=== PATIENT | male | born 1955 | race Caucasian/White ===

== ENCOUNTER 2016-07-25 15:36 | Inpatient (IN) | payer BC, MEDICARE ==
[~2016-07-25] VITALS: Ht 175.3 cm; Wt 75.7 kg
[2016-07-25] MEDS ORDERED: ACETAMINOPHEN 325 MG TABLET PO PRN ×2 (17:15)
[2016-07-25] MEDS ORDERED: TEMAZEPAM 15 MG CAPSULE PO PRN (17:15)
[2016-07-25] MEDS ORDERED: DOCUSATE SODIUM 283 MG/5 ML MINI-ENEMA PR PRN (17:15)
[2016-07-25 17:28] VITALS: BP 153/81
[2016-07-25] MEDS ORDERED: PNEUMOCOCCAL VACCINE POLYVALENT 0.5 ML VIAL [PPSV23] IM ONE (18:45)
[2016-07-25] MEDS ORDERED: INFLUENZA VIRUS VACCINE QVS 2016-17 (3YR+)/PF 60 MCG/0.5 ML SYRINGE IM ONE (18:45)
[2016-07-25] MEDS: DOCUSATE SODIUM 100 MG CAPSULE PO SCH (20:04)
[2016-07-25] MEDS: SENNA 187 MG TABLET PO SCH (20:05)
[2016-07-25 20:41] LABS: APPEARANCE,URINE CLEAR (CLEAR); GLUCOSE, URINE (UA) NEGATIVE (NEGATIVE); KETONES,URINE NEGATIVE (NEGATIVE); LEUKOCYTE ESTERASE ,URINE NEGATIVE (NEGATIVE); OCCULT BLOOD,URINE NEGATIVE (NEGATIVE); PROTEIN,URINE NEGATIVE (NEGATIVE); RBC,URINE None Seen /HPF (0-2); WBC,URINE 0-2 /HPF (0-5)
[2016-07-26 06:46] LABS: BASOPHILS % (AUTO) 0.1 % (0.0-2.0); EOSINOPHILS % (AUTO) 1.3 % (1.0-6.0); HEMATOCRIT 39.8 % (41-53); LYMPHOCYTES # (AUTO) 1.1 K/uL (1.0-4.8); LYMPHOCYTES % (AUTO) 12.9 % (22.0-44.0); MEAN CORPUSCULAR HEMOGLOBIN 29.6 pg (26.0-34.0); MEAN CORPUSCULAR HGB CONC 32.7 G/dL (31.0-37.0); MEAN CORPUSCULAR VOLUME 91 fL (80-100); MONOCYTES # (AUTO) 0.7 K/uL (0.1-1.0); MONOCYTES % (AUTO) 8.8 % (2.0-9.0); NEUTROPHILS # (AUTO) 6.3 K/uL (1.8-7.7); NEUTROPHILS % (AUTO) 76.9 % (40.0-70.0); PLATELET COUNT (AUTO) 280 K/uL (150-450); RED BLOOD CELL COUNT(AUTO) 4.39 MIL/uL (4.50-5.90); RED CELL DISTRIBUTION WIDTH 13.6 % (11.5-14.5); WHITE BLOOD COUNT (AUTO) 8.3 K/uL (4.5-11.0)
[2016-07-26 07:11] LABS: ALANINE AMINOTRANSFERASE 20 U/L (12-78); ALBUMIN 3.2 g/dL (3.4-5.0); ANION GAP 10 mmol/L (8-16); ASPARTATE AMINOTRANSFERASE 15 U/L (15-37); BILIRUBIN,TOTAL 0.4 mg/dL (0.1-1.0); CALCIUM, TOTAL 8.6 mg/dL (8.8-10.5); CARBON DIOXIDE 24 mmol/L (22-29); CHLORIDE 105 mmol/L (98-107); CREATININE 0.74 mg/dL (0.60-1.30); GLOMERULAR FILTR. RATE CALC > 60 mL/min (>60); POTASSIUM 3.8 mmol/L (3.5-5.1); SODIUM SERUM 139 mmol/L (136-145); TOTAL PROTEIN, SERUM 6.7 g/dL (6.4-8.2); UREA NITROGEN, BLOOD 9 mg/dL (7-18)
[2016-07-26 08:07] VITALS: BP 124/78
[2016-07-26] MEDS: DOCUSATE SODIUM 100 MG CAPSULE PO SCH ×2 (08:39→21:00)
[2016-07-26] MEDS: LISINOPRIL 5 MG TABLET PO SCH (08:39)
[2016-07-26] MEDS: THIAMINE HCL 100 MG TABLET PO SCH (08:39)
[2016-07-26] MEDS: FOLIC ACID 1 MG TABLET PO SCH (08:39)
[2016-07-26] MEDS ORDERED: CAPTOPRIL 50 MG TABLET PO SCH (09:00)
[2016-07-26] MEDS: ACYCLOVIR 800 MG TABLET PO SCH ×2 (18:23→22:20)
[2016-07-26 18:24] VITALS: BP 130/79
[2016-07-26] MEDS: SENNA 187 MG TABLET PO SCH (21:00)
[2016-07-27 04:57] VITALS: BP 118/68
[2016-07-27] MEDS: ACYCLOVIR 800 MG TABLET PO SCH ×5 (04:59→22:58)
[2016-07-27 07:22] VITALS: BP 125/71
[2016-07-27] MEDS: THIAMINE HCL 100 MG TABLET PO SCH (08:11)
[2016-07-27] MEDS: FOLIC ACID 1 MG TABLET PO SCH (08:11)
[2016-07-27] MEDS: MULTIVITAMINS WITH MINERALS, THERAPEUTIC TABLET PO SCH (08:14)
[2016-07-27] MEDS: LISINOPRIL 5 MG TABLET PO SCH (08:14)
[2016-07-27] MEDS: DOCUSATE SODIUM 100 MG CAPSULE PO SCH ×2 (08:27→20:00)
[2016-07-27] MEDS: HYPROMELLOSE 0.5% 15 ML OPHTHALMIC SOLUTION OU SCH ×4 (14:11→23:58)
[2016-07-27 15:19] VITALS: BP 129/70
[2016-07-27] MEDS: SENNA 187 MG TABLET PO SCH (20:01)
[2016-07-28] VITALS: BP 126/75
[2016-07-28] MEDS: HYPROMELLOSE 0.5% 15 ML OPHTHALMIC SOLUTION OU SCH ×5 (04:16→20:05)
[2016-07-28] MEDS: ACYCLOVIR 800 MG TABLET PO SCH ×5 (05:48→22:26)
[2016-07-28 08:20] VITALS: BP 115/72
[2016-07-28] MEDS: FOLIC ACID 1 MG TABLET PO SCH (08:33)
[2016-07-28] MEDS: MULTIVITAMINS WITH MINERALS, THERAPEUTIC TABLET PO SCH (08:33)
[2016-07-28] MEDS: FAMOTIDINE 20 MG TABLET PO SCH (08:33)
[2016-07-28] MEDS: DOCUSATE SODIUM 100 MG CAPSULE PO SCH ×2 (08:33→20:07)
[2016-07-28] MEDS: LISINOPRIL 5 MG TABLET PO SCH (08:33)
[2016-07-28] MEDS: THIAMINE HCL 100 MG TABLET PO SCH (08:33)
[2016-07-28 15:20] VITALS: BP 116/68
[2016-07-28] MEDS: SENNA 187 MG TABLET PO SCH (20:07)
[2016-07-29] VITALS: BP 106/60
[2016-07-29] MEDS: HYPROMELLOSE 0.5% 15 ML OPHTHALMIC SOLUTION OU SCH ×6 (00:07→20:14)
[2016-07-29] MEDS: ACYCLOVIR 800 MG TABLET PO SCH ×5 (06:19→22:02)
[2016-07-29 07:45] VITALS: BP 117/78
[2016-07-29] MEDS: FOLIC ACID 1 MG TABLET PO SCH (09:00)
[2016-07-29] MEDS: DOCUSATE SODIUM 100 MG CAPSULE PO SCH ×3 (09:00→20:20)
[2016-07-29] MEDS: FAMOTIDINE 20 MG TABLET PO SCH (09:09)
[2016-07-29] MEDS: MULTIVITAMINS WITH MINERALS, THERAPEUTIC TABLET PO SCH (09:11)
[2016-07-29] MEDS: THIAMINE HCL 100 MG TABLET PO SCH (09:11)
[2016-07-29] MEDS: LISINOPRIL 5 MG TABLET PO SCH (09:14)
[2016-07-29 15:29] VITALS: BP 149/76
[2016-07-29] MEDS: SENNA 187 MG TABLET PO SCH ×2 (20:15→20:20)
[2016-07-30 00:06] VITALS: BP 104/59
[2016-07-30] MEDS: ACYCLOVIR 800 MG TABLET PO SCH ×5 (05:28→21:07)
[2016-07-30] MEDS: HYPROMELLOSE 0.5% 15 ML OPHTHALMIC SOLUTION OU SCH ×6 (05:28→20:18)
[2016-07-30 07:40] VITALS: BP 142/82
[2016-07-30] MEDS: FAMOTIDINE 20 MG TABLET PO SCH ×2 (07:59→09:00)
[2016-07-30] MEDS: FOLIC ACID 1 MG TABLET PO SCH ×2 (07:59→09:00)
[2016-07-30] MEDS: LISINOPRIL 5 MG TABLET PO SCH (07:59)
[2016-07-30] MEDS: THIAMINE HCL 100 MG TABLET PO SCH ×2 (07:59→09:00)
[2016-07-30] MEDS: MULTIVITAMINS WITH MINERALS, THERAPEUTIC TABLET PO SCH ×2 (07:59→09:00)
[2016-07-30] MEDS: DOCUSATE SODIUM 100 MG CAPSULE PO SCH ×2 (08:00→20:18)
[2016-07-30 16:00] VITALS: BP 147/76
[2016-07-31] MEDS: HYPROMELLOSE 0.5% 15 ML OPHTHALMIC SOLUTION OU SCH ×6 (00:31→19:52)
[2016-07-31 00:53] VITALS: BP 121/70
[2016-07-31] MEDS: ACYCLOVIR 800 MG TABLET PO SCH ×5 (06:16→21:23)
[2016-07-31 07:45] VITALS: BP 129/75
[2016-07-31] MEDS: LISINOPRIL 5 MG TABLET PO SCH (08:00)
[2016-07-31] MEDS: FOLIC ACID 1 MG TABLET PO SCH (08:00)
[2016-07-31] MEDS: MULTIVITAMINS WITH MINERALS, THERAPEUTIC TABLET PO SCH (08:01)
[2016-07-31] MEDS: THIAMINE HCL 100 MG TABLET PO SCH (08:01)
[2016-07-31] MEDS: DOCUSATE SODIUM 100 MG CAPSULE PO SCH ×2 (08:01→21:00)
[2016-07-31] MEDS: FAMOTIDINE 20 MG TABLET PO SCH (08:01)
[2016-07-31 16:56] VITALS: BP 121/78
[2016-08-01] MEDS: HYPROMELLOSE 0.5% 15 ML OPHTHALMIC SOLUTION OU SCH ×6 (00:26→20:33)
[2016-08-01 00:46] VITALS: BP 135/80
[2016-08-01] MEDS: ACYCLOVIR 800 MG TABLET PO SCH ×5 (06:00→21:56)
[2016-08-01 08:01] VITALS: BP 126/74
[2016-08-01] MEDS: FOLIC ACID 1 MG TABLET PO SCH (08:22)
[2016-08-01] MEDS: LISINOPRIL 5 MG TABLET PO SCH (08:22)
[2016-08-01] MEDS: THIAMINE HCL 100 MG TABLET PO SCH (08:25)
[2016-08-01] MEDS: MULTIVITAMINS WITH MINERALS, THERAPEUTIC TABLET PO SCH (08:25)
[2016-08-01] MEDS: FAMOTIDINE 20 MG TABLET PO SCH (08:25)
[2016-08-01 16:51] VITALS: BP 123/73
[2016-08-02] MEDS: HYPROMELLOSE 0.5% 15 ML OPHTHALMIC SOLUTION OU SCH ×6 (00:46→20:17)
[2016-08-02 00:56] VITALS: BP 131/70
[2016-08-02] MEDS: ACYCLOVIR 800 MG TABLET PO SCH ×5 (05:42→22:08)
[2016-08-02 07:11] VITALS: BP 109/70
[2016-08-02] MEDS: FOLIC ACID 1 MG TABLET PO SCH (07:43)
[2016-08-02] MEDS: LISINOPRIL 5 MG TABLET PO SCH (07:43)
[2016-08-02] MEDS: MULTIVITAMINS WITH MINERALS, THERAPEUTIC TABLET PO SCH (07:44)
[2016-08-02] MEDS: FAMOTIDINE 20 MG TABLET PO SCH (07:44)
[2016-08-02] MEDS: THIAMINE HCL 100 MG TABLET PO SCH (07:45)
[2016-08-02 16:08] VITALS: BP 120/75
[2016-08-02] MEDS ORDERED: METOPROLOL TARTRATE 25 MG TABLET PO SCH (21:00)
[2016-08-03] MEDS: HYPROMELLOSE 0.5% 15 ML OPHTHALMIC SOLUTION OU SCH ×7 (00:16→23:52)
[2016-08-03 00:28] VITALS: BP 105/55
[2016-08-03 07:46] VITALS: BP 142/77
[2016-08-03] MEDS: FOLIC ACID 1 MG TABLET PO SCH (08:00)
[2016-08-03] MEDS: LISINOPRIL 5 MG TABLET PO SCH (08:00)
[2016-08-03] MEDS: MULTIVITAMINS WITH MINERALS, THERAPEUTIC TABLET PO SCH (08:01)
[2016-08-03] MEDS: THIAMINE HCL 100 MG TABLET PO SCH (08:01)
[2016-08-03] MEDS: FAMOTIDINE 20 MG TABLET PO SCH (08:01)
[2016-08-03 15:39] VITALS: BP 134/74
[2016-08-04] MEDS: HYPROMELLOSE 0.5% 15 ML OPHTHALMIC SOLUTION OU SCH ×5 (04:00→20:00)
[2016-08-04 05:00] VITALS: BP 132/71
[2016-08-04 07:10] VITALS: BP 110/63
[2016-08-04] MEDS: LISINOPRIL 5 MG TABLET PO SCH (08:25)
[2016-08-04] MEDS: FOLIC ACID 1 MG TABLET PO SCH (08:25)
[2016-08-04] MEDS: MULTIVITAMINS WITH MINERALS, THERAPEUTIC TABLET PO SCH (08:26)
[2016-08-04] MEDS: FAMOTIDINE 20 MG TABLET PO SCH (08:26)
[2016-08-04] MEDS: THIAMINE HCL 100 MG TABLET PO SCH (08:26)
[2016-08-04 15:30] VITALS: BP 139/83
[2016-08-05] MEDS: HYPROMELLOSE 0.5% 15 ML OPHTHALMIC SOLUTION OU SCH ×6 (04:00→20:58)
[2016-08-05 04:38] VITALS: BP 135/80
[2016-08-05 07:15] VITALS: BP 146/79
[2016-08-05] MEDS: LISINOPRIL 5 MG TABLET PO SCH (08:08)
[2016-08-05] MEDS: FAMOTIDINE 20 MG TABLET PO SCH (08:08)
[2016-08-05] MEDS: FOLIC ACID 1 MG TABLET PO SCH (08:08)
[2016-08-05] MEDS: MULTIVITAMINS WITH MINERALS, THERAPEUTIC TABLET PO SCH (09:00)
[2016-08-05] MEDS: THIAMINE HCL 100 MG TABLET PO SCH (09:00)
[2016-08-05 16:48] VITALS: BP 148/79
[2016-08-06] MEDS: HYPROMELLOSE 0.5% 15 ML OPHTHALMIC SOLUTION OU SCH ×6 (04:48→20:08)
[2016-08-06 04:53] VITALS: BP 132/73
[2016-08-06 07:58] VITALS: BP 136/80
[2016-08-06] MEDS: LISINOPRIL 5 MG TABLET PO SCH (08:32)
[2016-08-06] MEDS: FAMOTIDINE 20 MG TABLET PO SCH (08:32)
[2016-08-06] MEDS: FOLIC ACID 1 MG TABLET PO SCH (08:32)
[2016-08-06] MEDS: THIAMINE HCL 100 MG TABLET PO SCH (08:33)
[2016-08-06] MEDS: MULTIVITAMINS WITH MINERALS, THERAPEUTIC TABLET PO SCH (08:33)
[2016-08-06 13:00] VITALS: BP 100/56
[2016-08-06 17:34] VITALS: BP 139/80
[2016-08-07] VITALS: BP 132/73
[2016-08-07] MEDS: HYPROMELLOSE 0.5% 15 ML OPHTHALMIC SOLUTION OU SCH ×6 (00:08→20:00)
[2016-08-07] MEDS: LISINOPRIL 5 MG TABLET PO SCH (08:01)
[2016-08-07] MEDS: FAMOTIDINE 20 MG TABLET PO SCH (08:02)
[2016-08-07] MEDS: FOLIC ACID 1 MG TABLET PO SCH (08:02)
[2016-08-07] MEDS: THIAMINE HCL 100 MG TABLET PO SCH (08:37)
[2016-08-07] MEDS: MULTIVITAMINS WITH MINERALS, THERAPEUTIC TABLET PO SCH (08:37)
[2016-08-07 08:45] VITALS: BP 147/79
[2016-08-07 15:21] VITALS: BP 129/84
[2016-08-08 03:00] VITALS: BP 136/80
[2016-08-08] MEDS: HYPROMELLOSE 0.5% 15 ML OPHTHALMIC SOLUTION OU SCH ×3 (04:00→08:08)
[2016-08-08 07:00] VITALS: BP 137/82
[2016-08-08] MEDS ORDERED: HYPR15DR23 OU (07:57)
[2016-08-08] MEDS ORDERED: LISI-660 PO (07:57)
[2016-08-08] MEDS ORDERED: MULT-248 PO (07:57)
[2016-08-08] MEDS ORDERED: FAMO20 PO (07:57)
[2016-08-08] MEDS ORDERED: FOLI1 PO (07:57)
[2016-08-08] MEDS ORDERED: THIA100 PO (07:57)
[2016-08-08] MEDS: FAMOTIDINE 20 MG TABLET PO SCH (08:08)
[2016-08-08] MEDS: LISINOPRIL 5 MG TABLET PO SCH (08:08)
[2016-08-08] MEDS: FOLIC ACID 1 MG TABLET PO SCH (08:08)
[2016-08-08] MEDS: THIAMINE HCL 100 MG TABLET PO SCH (08:09)
[2016-08-08] MEDS: MULTIVITAMINS WITH MINERALS, THERAPEUTIC TABLET PO SCH (08:09)
== END 2016-08-08 15:00 | disposition home or self-care (01) | DRG 56 ==
LOC: 2WR 16:45
PROVIDERS: ADMIT Physical Medicine & Rehabilitation; ATTEND Physical Medicine & Rehabilitation
DX: I69.351 Hemiplegia and hemiparesis following cerebral infarction affecting right dominant side (principal); I63.9 Cerebral infarction, unspecified; H33.23 Serous retinal detachment, bilateral; E44.0 Moderate protein-calorie malnutrition; I10 Essential (primary) hypertension; F43.10 Post-traumatic stress disorder, unspecified; G31.84 Mild cognitive impairment of uncertain or unknown etiology; D63.8 Anemia in other chronic diseases classified elsewhere; B02.9 Zoster without complications; B19.20 Unspecified viral hepatitis C without hepatic coma; Z68.24 Body mass index [BMI] 24.0-24.9, adult; Z28.21 Immunization not carried out because of patient refusal; Z82.49 Family history of ischemic heart disease and other diseases of the circulatory system; Z82.0 Family history of epilepsy and other diseases of the nervous system
CPT/HCPCS: 87081; 92507; 92523; 97112; 97116; 97150; 97162; 97166; 97530; 97535; 99366